=== PATIENT | female | born 1950 | race Caucasian/White ===

== ENCOUNTER 2017-03-23 19:16 | Emergency (ER) | payer OTHER ==
[2017-03-23 19:28] VITALS: TEMP 98.2
--- NOTE | 2017-03-23 20:25 | EDPHY ---
H & P Time Seen by Provider: 03/23/17 20:05 HPI/ROS: CHIEF COMPLAINT: "I need IV antibiotics" HISTORY OF PRESENT ILLNESS: The patient is a 66-year-old female who presents to the emergency department with a positive urine culture. Patient is being treated for depression at the [facility]. She is currently undergoing ECT. She had outpatient urine drawn. The culture came back greater than 100,000 Pseudomonas aeruginosa. Patient denies any dysuria, hematuria or frequency. She has no urinary symptoms. She denies abdominal pain. No nausea or vomiting. Patient denies fevers or chills. No back pain. REVIEW OF SYSTEMS: My complete review of systems is negative except as mentioned in the HPI. Past Medical/Surgical History: Includes depression, hypothyroidism, UTI, delirium Past surgical history: Parathyroidectomy Social history: The patient is currently in a recovery Center. Smoking Status: Never smoked Physical Exam: 36.8, 114/74, 110, 18, 92% on room air (triage) GENERAL: Well-appearing, in no acute distress, alert. HEENT: Eyes normal to inspection, normal pharynx, no signs of dehydration. NECK: No thyromegaly, no lymphadenopathy, supple. RESPIRATORY: Clear to auscultation bilaterally, no rales, rhonchi or wheezing. CVS: Regular rate and rhythm, no rubs, murmurs, or gallops. ABDOMEN: Soft, nontender, nondistended, no organomegaly. BACK: Normal to inspection, no CVA tenderness. SKIN: Normal color, no rash, warm, dry. No pallor. EXTREMITIES: No pedal edema, no calf tenderness, no Homans sign or cords, no joint swelling. NEURO/PSYCH: Alert and oriented x3, normal mood and affect, normal motor sensory exam. No obvious cranial nerve deficit. Constitutional: Initial Vital Signs Temperature (C) 36.8 C 03/23/17 19:24 Heart Rate 110 H 03/23/17 19:24 Respiratory Rate 18 03/23/17 19:24 Blood Pressure 114/74 03/23/17 19:24 O2 Sat (%) 92 03/23/17 19:24 O2 Delivery Mode Room Air Allergies/Adverse Reactions: cefuroxime Allergy (Verified 03/23/17 19:28) olanzapine [From Zyprexa] Allergy (Verified 03/23/17 19:28) promethazine [From Phenergan] Allergy (Verified 03/23/17 19:28) quetiapine [From Seroquel] Allergy (Verified 03/23/17 19:28) Home Medications: Medication Instructions Recorded Aricept 03/23/17 Ativan 03/23/17 Colace 03/23/17 Depakote 03/23/17 Nortriptyline HCl 03/23/17 Synthroid 03/23/17 Medical Decision Making ED Course/Re-evaluation: In the emergency department I met the patient on arrival. I reviewed her record. Of note there was a note from Dr. Romo. "This states the following : The patient had a recent ICU stay complicated by delirium and UTI. Recent lab is positive for Pseudomonas. See lab for sensitivities. Please evaluate for appropriate antibiotic regimen given patient's age, medication list and history of recent decompensated status. No history of renal or hepatic problems. Positive history of hypothyroidism and para thyroidectomy. Patient currently in a residential facility for psychiatric treatment including ECT. Will dispense all medications." I discussed the case with Dr. David Kirkland from Infectious Disease. Based on the patient's presentation and findings he feels she does not need any treatment. The patient is asymptomatic at this time. He states that when her age frequently have colonization the and asymptomatic colonization should not be treated. I paged Dr. Romo to discuss. I discussed the case with Dr. Trevizo. I explained the discussion with Dr. Kirkland. I explained Dr. carr his recommendation. I again confirmed the patient was asymptomatic. She states she was not having any complaints at this time. Patient was given warnings prior to leaving. She will return with worsening symptoms. Differential Diagnosis: My differential includes but is not limited to urinary tract infection, pyelonephritis, bacteremia, sepsis, colonization, depression Departure - Departure Disposition: Home, Routine, Self-Care Clinical Impression: Urine culture positive Condition: Good Instructions: Depression (ED) Additional Instructions: Return with increasing abdominal pain, urinary frequency, blood in your urine, pain with urination, back or flank pain, or any other concerns. Referrals: CARLENE ROWAN [Other] - 2-3 days, call for appt.
[2017-03-23 20:26] VITALS: RESP 16; O2SAT 94
[2017-03-23 21:48] VITALS: BP 103/64; PULSE 99
== END 2017-03-23 21:48 | disposition home or self-care (01) ==
DX: R82.79 Other abnormal findings on microbiological examination of urine (principal)